=== PATIENT | female | born 1990 | race American Indian/Alaskan Native ===

== ENCOUNTER 2017-07-15 07:07 | Day surgery (SDC) | payer OTHER ==
[2017-07-11 14:19] VITALS: BMI 35.9
[2017-07-15 08:20] VITALS: O2SAT 100
[2017-07-15] MEDS ORDERED: Propofol 10 mg/ml Inj (20 ML) ONE (10:07)
[2017-07-15] MEDS ORDERED: Midazolam 2 MG/2 ML VIAL ONE (10:07)
[2017-07-15] MEDS ORDERED: Lactated Ringer's 1,000 ML IV ONE (10:15)
[2017-07-15] MEDS ORDERED: cefOXitin IV 2 gm in Dextrose 2 GM/50 ML BAG IVPB ONE (10:21)
--- NOTE | 2017-07-15 11:56 | OP ---
PREOPERATIVE DIAGNOSIS: Missed . POSTOPERATIVE DIAGNOSIS: Missed . PROCEDURE: Suction, dilation and curettage of the uterus. FINDINGS: Uterus 6 weeks in size with moderate products of conception. SURGEON: Concepcion Shelton MD TYPE OF ANESTHESIA: General. ESTIMATED BLOOD LOSS: 30 mL. COMPLICATIONS: Nil. DESCRIPTION OF PROCEDURE: After the risks, benefits and alternatives of the planned procedures including, but not limited to the infection, hemorrhage, deep vein thrombosis, atelectasis, pneumonia, pulmonary embolism, damage to the bladder, damage to the ureter, renal insufficiency, renal failure, wound infection, wound dehiscence, incisional hernia, keloid formation, damage to large and small intestine, damage to inferior vena cava and aorta requiring extensive repair, anesthesia complications, electrolyte imbalance, possibility of , Asherman syndrome, uterine perforation had been explained to the patient and all her questions answered, informed consent was obtained. The patient was taken to the operating room in a stable condition. Under a suitable level of general anesthesia, she was prepped and draped in a sterile fashion after having been placed in a dorsal lithotomy position. Levy catheter was inserted. Bladder was emptied by straight catheterization. Examination under anesthesia revealed a 6-week size uterus. A weighted speculum was inserted into vagina. The anterior lip of the cervix was grasped using a single-tooth tenaculum. The cervix was dilated to #18 Felice dilator and 8-mm suction tip was inserted into the uterus and a second curettage was performed until the uterus was completely empty. Instruments were removed from the vagina. There was good hemostasis. The patient was then transferred to the recovery room in a stable condition. Sponge, needle and instrument counts were correct x2. There were no complications. Concepcion Shelton MD
[2017-07-15 12:08] VITALS: RESP 18
[2017-07-15 13:09] VITALS: BP 98/58; PULSE 72; TEMP 98
== END 2017-07-15 13:05 | disposition home or self-care (01) ==
LOC: C.SDS 07:07
PROVIDERS: ATTEND Obstetrics & Gynecology Reproductive Endocrinology
DX: O02.1 Missed abortion (principal)
CPT/HCPCS: 59820; 88305; J0694; J2250; J2704; J3010; J7120

== ENCOUNTER 2018-12-20 14:27 | Emergency (ER) | payer OTHER ==
[2018-12-20 14:27] VITALS: BMI 35.9
--- NOTE | 2018-12-20 15:18 | C.PDOC ---
History Of Present Illness 28 year old female with no known medical history presents to the emergency department with complaints of bilateral chest pain which started 6 months ago. Patient states that she has been to several doctors who have told her that this is "nothing wrong" with her. Patient states that the pain started happening again in the last few days, which she describes as sharp in nature. Patient states that the pain is worse with movements and associated with cough, headache, and not feeling well. Patient denies fevers, chills, and shortness of breath. Time Seen by Provider: 12/20/18 14:47 Chief Complaint (Nursing): Rib Injury History Per: Patient History/Exam Limitations: no limitations Onset/Duration Of Symptoms: Other (6 months) Current Symptoms Are (Timing): Still Present Quality: Sharp, "Pain" Past Medical History Reviewed: Historical Data, Nursing Documentation, Vital Signs Vital Signs: Last Vital Signs Temp 98.5 F 12/20/18 14:38 Pulse 84 12/20/18 14:38 Resp 18 12/20/18 14:38 BP 134/87 12/20/18 14:38 Pulse Ox 100 12/20/18 14:38 - Medical History PMH: Anxiety Denies: Chronic Kidney Disease Surgical History: No Surg Hx - [facility] INJECT/INFUSE NEC (02/04/15) Family History: States: No Known Family Hx - Social History Hx Tobacco Use: No Hx Alcohol Use: Yes Hx Substance Use: No - Immunization History Hx Tetanus Toxoid Vaccination: No Hx Influenza Vaccination: No Hx Pneumococcal Vaccination: No Review Of Systems Except As Marked, All Systems Reviewed And Found Negative. Constitutional: Negative for: Fever, Chills Cardiovascular: Positive for: Chest Pain Respiratory: Positive for: Cough. Negative for: Shortness of Breath Neurological: Positive for: Headache Physical Exam - Physical Exam Appears: Non-toxic, No Acute Distress Skin: Normal Color, Warm, Dry Head: Atraumatic, Normacephalic Eye(s): bilateral: Normal Inspection, PERRL, EOMI Nose: Normal Throat: Normal, No Erythema, Other (uvula midline) Neck: Normal, Supple Chest: Symmetrical, No Tenderness Cardiovascular: Rhythm Regular, No Murmur Respiratory: Normal Breath Sounds, No Rales, No Rhonchi, No Wheezing Gastrointestinal/Abdominal: Soft, No Tenderness, No Guarding, No Rebound Extremity: Normal ROM Neurological/Psych: Oriented x3, Normal Speech, Normal Cognition ED Course And Treatment - Laboratory Results Result Diagrams: 12/20/18 15:36 12/20/18 15:36 ECG: Interpreted By Me, Viewed By Me Interpretation Of ECG: Normal sinus rhythm at 81bpm, T-inversion in lead 3, no ST/T wave changes, normal axis, normal intervals. O2 Sat by Pulse Oximetry: 100 (RA) Pulse Ox Interpretation: Normal Medical Decision Making Medical Decision Making: Plan: CMP Troponin CBC D-Dimer CXR Toradol 30mg IM Impression: Chest Pain Disposition - Disposition Referrals: at [facility] [place] [facility] [place] at [facility] [Outside] at [place] [Outside] Disposition: HOME/ ROUTINE Disposition Time: 17:23 Condition: GOOD Additional Instructions: Take motrin for pain and follow up with your pcp or Medicine clinic. Prescriptions: Ibuprofen [Motrin] 600 mg PO Q6 #20 tab Instructions: Pleuritic Chest Pain Forms: [facility] (Guamanian) - Clinical Impression Clinical Impression: Chest pain - Scribe Statement The provider has reviewed the documentation as recorded by the Scribe (Rizwan Corado) Provider Attestation: All medical record entries made by the Scribe were at my direction and personally dictated by me. I have reviewed the chart and agree that the record accurately reflects my personal performance of the history, physical exam, medical decision making, and the department course for this patient. I have also personally directed, reviewed, and agree with the discharge instructions and disposition.
[2018-12-20 15:41] LABS: BASO # 0.1 K/uL (0.0-0.2); BASO % 0.7 % (0.0-2.0); EOS # 0.1 K/uL (0.0-0.7); EOS % 1.3 % (0.0-4.0); HEMOGLOBIN 14.1 g/dL (11.0-16.0); LYMPH # 2.2 K/uL (1.0-4.3); LYMPH % 19.4 % (20.0-40.0); MEAN CELL VOLUME 95.4 fL (81.0-99.0); MEAN CORPUSCULAR HGB CONC 33.5 g/dL (33.0-37.0); MEAN PLATELET VOLUME 8.9 fL (7.2-11.7); MONO # 0.6 K/uL (0.0-0.8); MONO % 5.5 % (0.0-10.0); NEUT # 8.3 K/uL (1.8-7.0); NEUT % 73.1 % (50.0-75.0); RBC 4.42 Mil/uL (3.80-5.20); RED CELL DISTRIBUTION WIDTH 13.3 % (11.5-14.5); WHITE BLOOD COUNT 11.3 K/uL (4.8-10.8)
[2018-12-20 15:55] LABS: ALB/GLOB RATIO 1.4 (1.0-2.1); ALBUMIN 4.4 g/dL (3.5-5.0); ALT/SGPT 16 U/L (9-52); AST/SGOT 26 U/L (14-36); BLOOD UREA NITROGEN 13 mg/dL (7-17); CALCIUM 9.2 mg/dl (8.6-10.4); GFR NON-AFRICAN AMERICAN > 60
[2018-12-20 17:17] VITALS: BP 135/99; PULSE 81; RESP 20; TEMP 98.9
--- NOTE | 2018-12-20 18:28 | RAD ---
Date of service: 12/20/2018 HISTORY: r/o pneumonia COMPARISON: No prior. TECHNIQUE: Chest PA and lateral FINDINGS: LUNGS: No active pulmonary disease. PLEURA: No significant pleural effusion identified. No pneumothorax apparent. CARDIOVASCULAR: No aortic atherosclerotic calcification present. Normal cardiac size. No pulmonary vascular congestion. OSSEOUS STRUCTURES: No significant abnormalities. VISUALIZED UPPER ABDOMEN: Normal. OTHER FINDINGS: None. IMPRESSION: No active disease.
--- NOTE | 2018-12-21 11:30 | CARD ---
APPROVED REPORT Date of service: 12/20/2018 EKG Measurement Heart [id number] <Conclusion> Normal sinus rhythm Normal ECG
[2018-12-21 21:05] VITALS: O2SAT 100
== END 2018-12-20 17:23 | disposition home or self-care (01) ==
LOC: C.ER 14:27
DX: R07.9 Chest pain, unspecified (principal)
CPT/HCPCS: 71046; 80053; 84484; 85025; 85378; 93005; 96374; 99285; J1885